=== PATIENT | male | born 1990 | race Caucasian/White ===

== ENCOUNTER 2023-04-23 21:56 | Inpatient (IN) ==
[2023-04-23] MEDS ORDERED: dilTIAZem HCl 5 MG/ML 5 ML VIAL IV ONE (22:19)
[2023-04-23] MEDS ORDERED: dilTIAZem HCl 5 MG/ML 5 ML VIAL IV STA (22:19)
[2023-04-23] MEDS ORDERED: STAT IV Infusion **Titration per Protocol STA (22:20)
[2023-04-23] MEDS ORDERED: SODIUM CHLORIDE 0.9% 1000ML 1,000 ML IV ONE (22:20)
[2023-04-23 22:30] LABS: Basophils # (auto) 0.07 K/uL (0-0.2); Basophils % (auto) 0.9 %; Eosinophils # (auto) 0.12 K/uL (0-0.50); Eosinophils % (auto) 1.5 %; Hematocrit (blood only) 47.1 % (42.0-52.0); Hemoglobin 16.1 g/dl (14.0-18.0); Immature Granulocytes # (auto) 0.01 K/uL (0.01-0.20); Immature Granulocytes % (auto) 0.1 %; Lymphocytes % (auto) 42.2 %; Mean Corpuscular Hemoglobin 30.6 pg (25.0-34.0); Mean Corpuscular Hgb Conc 34.2 g/dL (32.0-36.0); Mean Corpuscular Volume 89.5 fL (80.0-100.0); Mean Platelet Volume 10.9 fL (9.4-12.4); Monocytes # (auto) 0.71 K/uL (0.11-0.59); Monocytes % (auto) 8.8 %; Neutrophils # (auto) 3.75 K/uL (1.40-6.50); Neutrophils % (auto) 46.5 %; Platelet Count 271 K/uL (130-400); RDW Coefficient of Variation 12.1 % (11.5-14.5); RDW Standard Deviation 39.7 fL (36.4-46.3); Red Blood Count 5.26 M/uL (4.70-6.10); White Blood Count 8.06 K/ul (4.8-10.8)
[2023-04-23] MEDS ORDERED: dilTIAZem HCL 125 MG in DEXTROSE 5% 100 ML IV SCH (22:30)
[2023-04-23 22:48] LABS: Albumin Globulin Ratio 1.6 (0.9-2); Albumin Level 4.5 gm/dl (3.4-5.0); BUN Creatinine Ratio 12.7 (10-20); Bilirubin,Total 0.7 mg/dl (0.2-1.0); Calcium 10.2 mg/dl (8.6-10.3); Est GFR (African American) 110.6 ml/min; Est GFR (Non-African American) 95.5 ml/min; Globulin 2.8 gm/dl (2.5-4.0); Magnesium 2.4 mg/dl (1.7-2.4); Potassium 4.3 mmol/L (3.5-5.1); Total Protein 7.3 gm/dl (6.0-8.3)
[2023-04-23 22:54] LABS: Troponin I High Sensitivity 7.2 pg/ml (0-20)
--- NOTE | 2023-04-23 22:55 | Emergency Department Note ---
History of Present Illness General Chief complaint: Arrhythmia/Palpitations Stated complaint: TACHYCARDIA Time Seen by Provider: 04/23/23 22:16 History of Present Illness This 32-year-old male presents to ER complaining of racing heart today. Patient drank heavily last night. He drinks nearly every single day at least 6+ beers. No history of A-fib or SVT. He states he is healthy with no active medical pro blems. Patient denies chest pain, dyspnea, fever, chills, flulike illness. Patient denies having the shakes or seizures from not drinking. He only drinks at night. Home Medications Medication Instructions Recorded Confirmed Type No Known Home Medications 06/21/20 04/23/23 History Allergies Allergy/AdvReac Type Severity Reaction Status Date / Time No Known Allergies Allergy Mild Unverified 03/09/23 10:13 Past Med/Surg History Surgical History History of tonsillectomy S/P tooth extraction Family History Mother Breast cancer Father No problems noted. Sister No problems noted. Son No problems noted. Son No problems noted. 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 marital status: Current Living Situation: Spouse and Family current occupational status: employed current occupation: [employer] How many Children do You have: 2 Feels Safe at Home: Yes Childhood Exposure to Second-Hand Smoke: No Diet: regular caffeine: Yes during the past year weight has: remained stable Dental Care, Regularly: Yes Physical Activity Frequency: Daily Seatbelt Use: never Sunscreen Use: No Assistive Devices: None Review of Systems A total of 10 systems reviewed and were otherwise negative Physical Exam Vital Signs Vital Signs - 24 hr 04/23/23 21:57 04/23/23 22:02 04/23/23 22:17 Temperature 35.8 C L Temperature Source Temporal Artery Scan Pulse Rate 77 141 H Respiratory Rate 18 Respiratory Depth Normal Blood Pressure [Right Arm] 153/88 H Blood Pressure Mean [Right Arm] 109 Pulse Oximetry 97 Oxygen Delivery Method Room Air Sepsis Recent Fever Within 48 Hours No Sepsis New/Unexplained Change in Mental Status N/A Sepsis Action Taken by Nursing No Action Required 04/23/23 22:29 Temperature Temperature Source Pulse Rate 96 H Respiratory Rate Respiratory Depth Blood Pressure [Right Arm] Blood Pressure Mean [Right Arm] Pulse Oximetry Oxygen Delivery Method Sepsis Recent Fever Within 48 Hours Sepsis New/Unexplained Change in Mental Status Sepsis Action Taken by Nursing VITALS: Vitals are noted on the nurse's note and reviewed by myself. Vital signs reviewed. GENERAL: Pleasant male, in no acute distress, nondiaphoretic, well-developed well-nourished. SKIN: The skin was without rashes, erythema, edema, or bruising. There is no tenting of the skin. Capillary reflex less than 2 seconds. HEAD: Normocephalic atraumatic. EARS: External auditory canals clear, EYES: Pupils equal round and reactive to light and accommodation. Conjunctivae without injection, sclerae without icterus. Extraocular movements intact. NOSE: Patent, turbinates without inflammation or discharge. MOUTH: Mucous membranes moist. Pharynx without erythema or exudate. Uvula midline. Airway patent. Tongue does not deviate. NECK: Supple without nuchal rigidity. No lymphadenopathy. No thyromegaly. Cervical spine is nontender. No JVD. HEART: Tachycardic irregularly irregular concerning for A-fib with RVR LUNGS: Clear to auscultation bilaterally without wheezes, rales or rhonchi. No retractions or accessory muscle use. ABDOMEN: Positive bowel sounds x 4. Normal tympanic percussion. Soft, nontender, without masses or organomegaly. Beckham sign negative. No guarding or rebound tenderness. No CVA tenderness MUSCULOSKELETAL: No muscle atrophy, erythema, or edema noted. NEURO: Patient was alert and oriented to person place and time. Normal sensati on to light and sharp touch. No focal neurological deficits. Course Administered Medications Sodium Chloride (Nss 1000ml) 1,000 mls @ 999 mls/hr IV .Q1H1M ONE Stop: 04/23/23 23:20 Last Admin: 04/23/23 22:35 Dose: 999 mls/hr Documented By: CAMRYN Diltiazem HCl 125 mg/ Dextrose 125 mls @ 5 mls/hr IV .Q24H [facility]; Protocol Stop: 05/23/23 22:29 Last Admin: 04/23/23 22:34 Dose: 5 mg/hr, 5 mls/hr Documented By: CAMRYN Co-signed By: YEIMY Discontinued Medications Diltiazem HCl (Diltiazem Hcl 5 Mg/Ml 5 Ml Vial) Confirm Administered Dose 25 mg IV .STK-MED ONE Stop: 04/23/23 22:20 Last Admin: 04/23/23 22:35 Dose: Not Given Documented By: CAMRYN Diltiazem HCl (Diltiazem Hcl 5 Mg/Ml 5 Ml Vial) 20 mg IV NOW STA Stop: 04/23/23 22:20 Last Admin: 04/23/23 22:35 Dose: 20 mg Documented By: CAMRYN Co-signed By: YEIMY Critical Care Time Critical Care Time: Yes Total Critical Care Time: 35 I have personally spent 35 minutes of critical care time in the direct management of this patient. This includes bedside care, interpretation of diagnostic studies, and testing, discussion with consultants, patient, and family members, and other required patient management activities. This 35 minutes is in excess of all separately billable procedures. Medical Decision Making Medical Records Attestation: I reviewed the patient's medical records. Home Medications Current Medication List: was personally reviewed by az Laboratory Data Attestation: I reviewed the patient's lab results. 04/23/23 22:15 04/23/23 22:15 Lab Results 04/23/23 04/23/23 04/23/23 Range/Units 22:15 22:15 22:15 WBC 8.06 (4.8-10.8) K/ul RBC 5.26 (4.70-6.10) M/uL Hgb 16.1 (14.0-18.0) g/dl Hct 47.1 (42.0-52.0) % MCV 89.5 (80.0-100.0) fL MCH 30.6 (25.0-34.0) pg MCHC 34.2 (32.0-36.0) g/dL RDW Std Deviation 39.7 (36.4-46.3) fL RDW Coeff of Tonya 12.1 (11.5-14.5) % Plt Count 271 (130-400) K/uL MPV 10.9 (9.4-12.4) fL Immature Gran % (Auto) 0.1 % Neut % (Auto) 46.5 % Lymph % (Auto) 42.2 % Evans % (Auto) 8.8 % Eos % (Auto) 1.5 % Baso % (Auto) 0.9 % Neut # (Auto) 3.75 (1.40-6.50) K/uL Lymph # (Auto) 3.40 (1.2-3.4) K/uL Evans # (Auto) 0.71 H (0.11-0.59) K/uL Eos # (Auto) 0.12 (0-0.50) K/uL Baso # (Auto) 0.07 (0-0.2) K/uL Immature Gran # (Auto) 0.01 (0.01-0.20) K/uL PT 10.8 (9.0-12.0) Seconds INR 1.0 (0.9-1.1) APTT 28.9 (21.0-31.0) Seconds PTT Ratio 1.0 Sodium 142 (136-145) mmol/L Potassium 4.3 (3.5-5.1) mmol/L Chloride 107 (98-107) mmol/L Carbon Dioxide 29 (21-32) mmol/L Anion Gap 6 (3-11) BUN 13 (6-23) mg/dl Creatinine 1.02 (0.6-1.4) mg/dl Est Cr Clr Drug Dosing 102.0 ml/min Est GFR ( Amer) 110.6 ml/min Est GFR (Non-Af Amer) 95.5 ml/min BUN/Creatinine Ratio 12.7 (10-20) Glucose 93 (70-99(Fasting)) mg/dl Calcium 10.2 (8.6-10.3) mg/dl Magnesium 2.4 (1.7-2.4) mg/dl Total Bilirubin 0.7 (0.2-1.0) mg/dl AST 25 (13-39) U/L ALT 30 (7-52) U/L Alkaline Phosphatase 61 (34-104) U/L Troponin I High Sens 7.2 (0-20) pg/ml Total Protein 7.3 (6.0-8.3) gm/dl Albumin 4.5 (3.4-5.0) gm/dl Globulin 2.8 (2.5-4.0) gm/dl Albumin/Globulin Ratio 1.6 (0.9-2) TSH (0.300-4.500) uIu/ml 04/23/23 Range/Units 22:15 WBC (4.8-10.8) K/ul RBC (4.70-6.10) M/uL Hgb (14.0-18.0) g/dl Hct (42.0-52.0) % MCV (80.0-100.0) fL MCH (25.0-34.0) pg MCHC (32.0-36.0) g/dL RDW Std Deviation (36.4-46.3) fL RDW Coeff of Tonya (11.5-14.5) % Plt Count (130-400) K/uL MPV (9.4-12.4) fL Immature Gran % (Auto) % Neut % (Auto) % Lymph % (Auto) % Evans % (Auto) % Eos % (Auto) % Baso % (Auto) % Neut # (Auto) (1.40-6.50) K/uL Lymph # (Auto) (1.2-3.4) K/uL Evans # (Auto) (0.11-0.59) K/uL Eos # (Auto) (0-0.50) K/uL Baso # (Auto) (0-0.2) K/uL Immature Gran # (Auto) (0.01-0.20) K/uL PT (9.0-12.0) Seconds INR (0.9-1.1) APTT (21.0-31.0) Seconds PTT Ratio Sodium (136-145) mmol/L Potassium (3.5-5.1) mmol/L Chloride (98-107) mmol/L Carbon Dioxide (21-32) mmol/L Anion Gap (3-11) BUN (6-23) mg/dl Creatinine (0.6-1.4) mg/dl Est Cr Clr Drug Dosing ml/min Est GFR ( Amer) ml/min Est GFR (Non-Af Amer) ml/min BUN/Creatinine Ratio (10-20) Glucose (70-99(Fasting)) mg/dl Calcium (8.6-10.3) mg/dl Magnesium (1.7-2.4) mg/dl Total Bilirubin (0.2-1.0) mg/dl AST (13-39) U/L ALT (7-52) U/L Alkaline Phosphatase (34-104) U/L Troponin I High Sens (0-20) pg/ml Total Protein (6.0-8.3) gm/dl Albumin (3.4-5.0) gm/dl Globulin (2.5-4.0) gm/dl Albumin/Globulin Ratio (0.9-2) TSH 4.520 H (0.300-4.500) uIu/ml Imaging Data Attestation: I personally reviewed and interpreted this imaging study as follows: MDM Narrative Prior records/ancillary studies reviewed. Triage Nursing notes reviewed. Additional history obtained from family. The patient's history was concerning for palpitations. Differential diagnosis: Etiologies such as premature contractions, electrolyte abnormality, cardiac dysrhythmia, thyroid dysfunction, pulmonary embolism, infection, gastrointestinal, as well as others were entertained. Physical examination: Benign as above. ER treatment provided: Cardizem IV with drip On reassessment the patient felt better. Diagnostic interpretation by me: An order was placed for continuous cardiac monitoring. The monitor shows a rate of 60-200 with a A-fib RVR rhythm per my interpretation. The electrocardiogram was ordered for palpitaions ECG: Ordered for palpitations EKG: Irregularly irregular, occasional PVC, ventricular rate of 151. Impression A-fib RVR with occasional PVC independently interpreted by myself The labs Independently Interpreted by myself revealed no worrisome leukocytosis, normal magnesium Negative troponin Imaging studies: Chest x-ray with no acute consolidation, pneumothorax or free air per my independent interpretation CHADS2 Score Sex: 0 Congestive HF (1): 0 Hypertension (1) :0 Age >75 years (1) :0 Diabetes mellitus (1):0 Stroke/TIA/TE (2): 0 Score: 0 CHADS2 Unadjusted ischemic stroke rate (% per year) 0: 0.6% 1: 3.0% 2: 4.2% 3: 7.1% 4: 11.1% 5: 12.5% 6: 13.0% Consultation: A consultation was placed with the hospitalist. The case was discussed and diagnostics were reviewed. The patient was evaluated in the ER for further treatment. This appears to be consistent with insulin A-fib with RVR. Patient was given Cardizem with a drip. His heart rate did improve. He was still in A-fib. Symptoms started today most likely but patient's had symptoms in the past possi dontrell but is not 100% sure. Electrolytes are stable. He does drink excessive amounts of alcohol and this can contribute to his symptoms. Medicine is consulted and the case was discussed and he will be evaluated for admission. By the evaluation outlined above emergent etiologies such as electrolyte abnormality, thyroid dysfunction, pulmonary embolism, infection, as well as others were deemed relatively unlikely. The pt informed about the findings as listed above. All questions were answered and pleased with the treatment. The chart was completed utilizing [employer] Speech voice recognition software. Grammatical errors, random word insertions, pronoun errors, and incomplete sentences are an occassional consequence of this system due to software limitations, ambient noise, and hardware issues. Any formal questions or concerns about the content, text, or information contained within the body of this dictation should be directly addressed to the physician home care assistant for clarification. Impression & Plan Atrial fibrillation with rapid ventricular response Discharge Plan Visit Data Chief Complaint: Arrhythmia/Palpitations Stated Complaint: TACHYCARDIA ED Provider: Lion Michel ED Midlevel Provider: Rowena Walsh Discharge Problem: Atrial fibrillation with rapid ventricular response Patient Disposition: Admitted As Inpatient Condition: Fair Forms Stand Alone Forms: VNG Prescriptions Prescriptions: No Action No Known Home Medications Referrals Referrals: Lisbet Eric MD [Primary Care Provider] -
[2023-04-23 23:02] LABS: Thyroid Stimulating Hormone 4.52 uIu/ml (0.300-4.500)
[2023-04-23 23:08] LABS: Partial Thromboplastin Time 28.9 Seconds (21.0-31.0); Prothrombin Time 10.8 Seconds (9.0-12.0)
[2023-04-23 23:36] LABS: T4 Free Thyroxine 0.66 ng/dl (0.61-1.60)
[2023-04-24] MEDS ORDERED: POLYETHYLENE (MIRALAX) 17 GM PACK PO PRN (00:52)
[2023-04-24] MEDS ORDERED: ACETAMINOPHEN 325 MG TAB PO PRN (00:52)
[2023-04-24] MEDS ORDERED: ALUMINUM/MAGNESIUM SUSP 30 ML UDC PO PRN (00:52)
[2023-04-24] MEDS: ASPIRIN 81 MG ECTAB PO SCH ×2 (01:48→09:59)
--- NOTE | 2023-04-24 04:57 | History & Physical Report ---
Date of Service April 24, 2023 Assessment & Plan (1) Atrial fibrillation with rapid ventricular response: Plan: Patient found to be in atrial fibrillation with rapid ventricular rate in the ED and presents with palpitations. Started on IV Cardizem for rate control which will be titrated based on his hemodynamic response. check TSH leve to exclude thyroid related causes . Atrial fibrillation likely triggered by alcohol consumption . Check transthoracic echo obtain serial troponin levels to rule out ischemia and patient does not have any chest pain . Continue telemetry monitoring Cardiology input (2) ETOH abuse: Plan: Patient admits to significant alcohol consumption consumes predominantly beer. No evidence of significant electrolyte abnormalities noted on initial labs initiate CIWA protocol and close monitoring Thiamine and folate supplementation Admission and Anticipated Discharge Date Admission Date: April 23, 2023 History of Present Illness Chief Complaint: Patient presents to ED with complaints of palpitations Primary Care Provider: Lisbet Eric MD This is a 32-year-old male with no significant past medical history except for history of alcohol consumption who presents to the emergency department with complaints of palpitations. Patient reports that he started experiencing intermittent episodes of racing heart and became concerned and presents to ED for further evaluation. Patient admits to having similar symptoms about 2 years ago that resolved without any significant intervention and patient did not seek medical attention for evaluation of palpitations at the time. Patient also admits to consuming alcohol on almost daily basis and patient drinks beer in particular. Patient reports that on Sunday he had consumed significant amounts of alcohol more than his usual daily consumption. Upon arrival to the ED patient was found to be in atrial fibrillation with rapid ventricular rate and was started on IV Cardizem for rate control. Patient otherwise denies any chest pain or shortness of breath. Patient denies any seizures or withdrawal type symptoms from his alcohol consumption. Allergies Allergy/AdvReac Type Severity Reaction Status Date / Time No Known Allergies Allergy Mild Unverified 03/09/23 10:13 Home Medications Medication Instructions Recorded Confirmed Type No Known Home Medications 06/21/20 04/23/23 History Past Med/Surg History Surgical History History of tonsillectomy S/P tooth extraction Family History Mother Breast cancer Father No problems noted. Sister No problems noted. Son No problems noted. Son No problems noted. 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 Beliefs That Will Affect Care: None marital status: Current Living Situation: Spouse current occupational status: employed current occupation: [employer] How many Children do You have: 2 Other Information That Helps Us Care for You: No Feels Safe at Home: Yes Safety Concerns: Feels Safe At This Time Childhood Exposure to Second-Hand Smoke: No Diet: regular caffeine: Yes during the past year weight has: remained stable Dental Care, Regularly: Yes Physical Activity Frequency: Daily Seatbelt Use: never Sunscreen Use: No Assistive Devices: None Review of Systems Review of Systems: Constitutional-no fever or chills ENT-no blurred vision, no double vision, no epistaxis, no sore throat Respiratory- no shortness of breath noted with exertion. No wheezing Cardiac-no palpitations, no chest pain, no syncope GI-no nausea, vomiting, diarrhea, melena, hematochezia -no urinary retention, no urinary incontinence, no dysuria, no hematuria Musculoskeletal-no joint pain, no muscle tenderness Skin-no bruising, no rashes, no pruritus Neuro-no isolated weakness, Physical Exam Physical Exam: Head and ENT no thyroid enlargement trachea midline Cardiovascular S1-S2 are normal no S3 Lungs bilateral air entry fair no wheezing Abdomen soft nondistended positive bowel sounds no rebound tenderness Extremity shows trace edema Neurologically no focal deficits no tremors Skin shows no rash no cyanosis Results & Data Results & Data Vital Signs (Past 12 Hours) Vital Signs Temp Pulse Pulse Resp BP Pulse Ox O2 Del Method 04/24/23 03:06 36.8 C 78 16 129/79 98 Room Air 04/24/23 01:07 72 04/24/23 00:45 118 H 04/24/23 00:50 36.8 C 111 H 18 137/98 95 Room Air 04/23/23 23:30 85 17 130/93 98 Room Air 04/23/23 22:29 96 H 04/23/23 22:17 141 H 04/23/23 22:02 153/88 H 04/23/23 21:57 35.8 C L 77 18 97 Room Air Laboratory Results Short CBC 04/23/23 Range/Units 22:15 WBC 8.06 (4.8-10.8) K/ul Hgb 16.1 (14.0-18.0) g/dl Hct 47.1 (42.0-52.0) % Plt Count 271 (130-400) K/uL BMP 04/23/23 22:15 Sodium 142 Potassium 4.3 Chloride 107 Carbon Dioxide 29 BUN 13 Creatinine 1.02 Glucose 93 Calcium 10.2 Liver Function 04/23/23 Range/Units 22:15 Total Bilirubin 0.7 (0.2-1.0) mg/dl AST 25 (13-39) U/L ALT 30 (7-52) U/L Alkaline Phosphatase 61 (34-104) U/L Albumin 4.5 (3.4-5.0) gm/dl Diagnostic Findings Chest X-Ray 04/23/23 22:00 XR chest 1V not portable CLINICAL HISTORY: Chest pain, nonspecific COMPARISON STUDY: No previous studies for comparison. FINDINGS: Lung volumes are normal. Lungs are clear. There is no pneumothorax or pleural effusion. Cardiac size is normal. Mediastinal contours are normal. There is no evidence for pulmonary edema. IMPRESSION: No acute cardiopulmonary findings. ACT 112: Negative or not required by law. Electronically signed by: Hector Collins M.D. 04/24/2023 6:55 AM Code Status & VTE Plan VTE Prophylaxis Plan VTE Prophylaxis will be ordered: Yes PG Care Time/CCT Total # of Minutes Spent Total Time Spent with Patient: Total time spent is greater than 50% in coordination of care (as documented) at patient's floor/unit and/or counseling patient: Coding Level of Care Code 37209 INT INP/OBS CARE 2/55MIN Diagnoses Atrial fibrillation with rapid ventricular response I48.91 ETOH abuse F10.10
--- NOTE | 2023-04-24 06:57 | XRay Report ---
XR chest 1V not portable CLINICAL HISTORY: Chest pain, nonspecific COMPARISON STUDY: No previous studies for comparison. FINDINGS: Lung volumes are normal. Lungs are clear. There is no pneumothorax or pleural effusion. Car diac size is normal. Mediastinal contours are normal. There is no evidence for pulmonary edema. IMPRESSION: No acute cardiopulmonary findings. ACT 112: Negative or not required by law. Electronically signed by: Hector Collins M.D. 04/24/2023 6:55 AM
[2023-04-24] MEDS ORDERED: CEROVITE ADV FORMULA TAB PO STA (07:15)
[2023-04-24] MEDS ORDERED: LORazepam 2 MG/1 ML VIAL IV PRN (07:15)
[2023-04-24] MEDS ORDERED: THIAMINE HCL 100 MG, FOLIC ACID 1 MG in SODIUM CHLORIDE 0.9% 1000ML 1,000 ML IV SCH (07:30)
--- NOTE | 2023-04-24 07:33 | Hospitalist Progress Note ---
Date of Service April 24, 2023 Assessment & Plan (1) ETOH abuse: (2) Atrial fibrillation with rapid ventricular response: Plan Johnathan Cantu is a 32 year-old male without significant past medical history who presented to the ED due to palpitations. He was admitted to the hospital a fter being found to be in atrial fibrillation with RVR. He also has A. Fib with RVR Patient found to be in atrial fibrillation with rapid ventricular rate in the ED and presents with palpitations. Started on IV Cardizem for rate control which will be titrated based on his hemodynamic response. check TSH leve to exclude thyroid related causes . Atrial fibrillation likely triggered by alcohol consumption . Check transthoracic echo obtain serial troponin levels to rule out ischemia and patient does not have any chest pain . Continue telemetry monitoring Cardiology input Alcohol Use Disorder Diet: VTE Prophylaxis: Code Status: Full Code Admission and Anticipated Discharge Date Admission Date: April 23, 2023 Subjective Johnathan Cantu is a 32 year-old male without significant past medical history who presented to the ED due to palpitations. He was admitted to the hospital after being found to be in atrial fibrillation with RVR. He also has 04/24: Review of Systems Review of Systems: As per above Results & Data Results & Data Vital Signs (Past 12 Hours) Vital Signs Temp Pulse Pulse Resp BP BP Pulse Ox 04/24/23 06:55 36.8 C 70 20 127/86 98 04/24/23 04:55 56 L 04/24/23 03:06 36.8 C 78 16 129/79 98 04/24/23 01:07 72 04/24/23 00:45 118 H 04/24/23 00:50 36.8 C 111 H 18 137/98 95 04/23/23 23:30 85 17 130/93 98 04/23/23 22:29 96 H 04/23/23 22:17 141 H 04/23/23 22:02 153/88 H 04/23/23 21:57 35.8 C L 77 18 97 O2 Del Method 04/24/23 06:55 Room Air 04/24/23 04:55 04/24/23 03:06 Room Air 04/24/23 01:07 04/24/23 00:45 04/24/23 00:50 Room Air 04/23/23 23:30 Room Air 04/23/23 22:29 04/23/23 22:17 04/23/23 22:02 04/23/23 21:57 Room Air Resident Activity Tracking Resident Involvement: Resident Care Provided Care Provided: Adult Hospital Medicine
[2023-04-24 08:11] LABS: BUN Creatinine Ratio 12.6 (10-20); Calcium 9.3 mg/dl (8.6-10.3); Creatinine Clr Calc Pharmacy 124.3 ml/min; Est GFR (African American) 120.6 ml/min; Potassium 4.7 mmol/L (3.5-5.1)
[2023-04-24] MEDS ORDERED: FOLIC ACID 1 MG TAB PO SCH (09:00)
[2023-04-24] MEDS ORDERED: HEPARIN SOD 5,000 UNIT/0.5 ML VIAL SQ SCH (09:00)
[2023-04-24] MEDS ORDERED: THIAMINE HCL 100 MG TAB PO SCH (09:00)
--- NOTE | 2023-04-24 09:12 | Electrocardiogram Report ---
Test Reason : Blood Pressure : / mmHG Vent. Rate : 151 BPM Atrial Rate : 000 BPM P-R Int : 000 ms QRS Dur : 074 ms QT Int : 242 ms P-R-T Axes : 000 089 032 degrees QTc Int : 383 ms Atrial fibrillation with rapid ventricular response with premature ventricular or aberrantly conducte d complexes Abnormal ECG No previous ECGs available Confirmed by Terry Arshad ([id number]) on 04/24/2023 9:11:49 AM Referred By: REFERRED SELF Confirmed By:Terry Arshad
--- NOTE | 2023-04-24 11:12 | Cardiology Consultation ---
Date of Consultation April 24, 2023 Assessment & Plan (1) Atrial fibrillation with rapid ventricular response: (2) ETOH abuse: Plan 32-year-old healthy man with history of moderate alcohol intake developed atrial fibrillation after a larger than usual alcohol ingestion. The fact that he had normal electrolytes (including magnesium) and has a normal echocardiogram weighs against the atrial fibrillation being secondary to chronic alcohol use, more likely this is a "holiday heart" type scenario which should have a low incidence of recurrence. Nonetheless, would recommend that he be discharged with a "pill in the pocket" PRN metoprolol prescription to be used if he were to develop recurrent atrial fibrillation. 50 mg of metoprolol tartrate would be one option, the tartrate would allow for quicker absorption and the dose should be adequate to control the ventricular rate of atrial fibrillation or help convert him back to sinus rhythm. His [id number] were 0, so anticoagulation is not an issue. Did advise patient as to the deleterious cardiac effects of both chronic and acute alcohol ingestion. No specific cardiology follow-up needed in the absence of recurrent atrial fibrillation. History of Present Illness Reason for Consultation: afib/rvr Requesting Physician: Rocky Reeves MD Attending Physician: Shyanne Lindsay MD History of Present Illness 32-year-old man with no significant medical cardiac history presented to the emergency department with palpitations and found to have atrial fibrillation with rapid ventricular response after heavy alcohol consumption. At baseline, he is physically active with no cardiopulmonary complaints whatsoever. 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 He drinks about a sixpack of beer a day, but while with some friends over the weekend he consumed significantly more alcohol and then noted feeling "nervous" with a vague sense of palpitations but no dyspnea, chest pain, lightheadedness, presyncope, or syncope. ECG in the ER showed atrial fibrillation with rapid ventricular response 151 bpm, otherwise unremarkable. Troponin was negative. He was placed on a diltiazem drip for rate control, approximately 4 AM this morning he reverted to sinus rhythm. He has no family history of cardiac issues. He denies any personal history of hypertension, diabetes, notes that his cholesterol is "low", and he is a non-smo ker. At the time of my evaluation, he was comfortable and had no somatic complaints whatsoever. Allergies Allergy/AdvReac Type Severity Reaction Status Date / Time No Known Allergies Allergy Mild Unverified 03/09/23 10:13 Home Medications Medication Instructions Recorded Confirmed Type No Known Home Medications 06/21/20 04/23/23 History Patient History Surgical History History of tonsillectomy S/P tooth extraction Family History Mother Breast cancer Father No problems noted. Sister No problems noted. Son No problems noted. Son No problems noted. Denies family history of Ovarian cancer Prostate cancer Myocardial infarction Colorectal cancer Social History Smoking Status: Never smoker Second Hand Exposure: No; Do You Dip or Chew Tobacco: Yes; Hx Alcohol Use: Yes Alcohol type: beer Alcohol Intake Frequency: 2-3 x/Week Hx Substance Use: No Preferred Language: Danish Communication Ability: Effective Visual Impairment: No Limitations Hearing Ability: Normal Sausage Smoker Required: No Beliefs That Will Affect Care: None marital status: Current Living Situation: Spouse current occupational status: employed current occupation: [employer] How many Children do You have: 2 Other Information That Helps Us Care for You: No Feels Safe at Home: Yes Safety Concerns: Feels Safe At This Time Childhood Exposure to Second-Hand Smoke: No Diet: regular caffeine: Yes during the past year weight has: remained stable Dental Care, Regularly: Yes Physical Activity Frequency: Daily Seatbelt Use: never Sunscreen Use: No Assistive Devices: None Physical Exam Physical Exam: Fit appearing adult white male in no distress. BP normotensive. Pulse 55 bpm and regular without ectopy. Skin: no ecchymoses or generalized lesions. HEENT: unremarkable. Neck: JVP at the clavicle at 90 degrees, no carotid bruits. Lungs: clear. Cardiac: regular rhythm, normal S1-2, no murmur. Abdomen: benign. Extremities: no edema, pulses intact. Neurologic: normal affect and conversation, nonfocal. Results & Data Diagnostic Findings Preliminary reading of echocardiogram shows a completely normal study. PG Care Time/CCT Total # of Minutes Spent Total Time Spent with Patient: Total time spent is greater than 50% in coordination of care (as documented) at patient's floor/unit and/or counseling patient: Coding Level of Care Code 08318 IN/OBS CONSULT LVL 3,45M Diagnoses Atrial fibrillation with rapid ventricular response I48.91 ETOH abuse F10.10
--- NOTE | 2023-04-24 11:29 | XCELERA ---
[id number]
--- NOTE | 2023-04-24 12:04 | Medical Student Progress Note ---
Date of Service April 24, 2023 Assessment & Plan (1) Atrial fibrillation with rapid ventricular response: (2) ETOH abuse: Plan Johnathan Cantu is a 32 year-old male without significant past medical history who presented to the ED due to palpitations. He was admitted to the hospital a fter being found to be in atrial fibrillation with RVR. 1. AFib with RVR Patient found to be in atrial fibrillation with rapid ventricular rate in the ED and presents with palpitations. Received on IV Cardizem for rate control last night (04/23) He converted from Afib to NSR at 4:44 AM. Checked thyroid labs for thyroid-related issue. TSH was mildly elevated at 4.520. Free T4 was WNL at 0.66. Atrial fibrillation likely triggered by alcohol consumption. Transthoracic Echo was normal. Troponin was WNL at 7.2. Patient does not have any chest pain. Cardiology input: [id number] was 0. Suspected his presentation is d/t "holiday heart." Recommended that he be discharged with a "pill in the pocket" PRN metoprolol prescription to be used if he were to develop recurrent atrial fibrillation. Advised 50 mg of metoprolol tartrate, with which we will discharge pt home. No specific cardiology follow-up needed in the absence of recurrent atrial fibrillation. 2. Alcohol Use Disorder Cardiology advised patient as to the deleterious cardiac effects of both chronic and acute alcohol ingestion. Diet: Heart healthy VTE Prophylaxis: received heparin Code Status: Full Code Admission and Anticipated Discharge Date Admission Date: April 23, 2023 Anticipated date of discharge: 04/24/23 Barrett Cantu is a 32 year-old male without significant past medical history who presented to the ED due to palpitations. He was admitted to the hospital after being found to be in atrial fibrillation with RVR and was started on IV Cardizem for rate control. 04/24: Reports he felt his palpitations stop around 4 AM today. Denies ever having chest pain, SOB, fatigue, lightheadedness, or dizziness during or after his episode of afib. Does report anxiousness and sweats when he was experiencing afib, but has not experienced these symptoms since his palpitations halted. Denies symptoms of alcohol withdrawal including seizures, visual/auditory/tactile hallucinations, tremor, decreased appetite, insomnia, nausea, vomiting, headache, vivid dreams. Reports he has had intermittent episodes of palpitations previously, which he recalls first occurring about 2 years ago, but these palpitations lasted only 15 seconds before resolution, so he has not sought medical attention. Review of Systems Review of Systems: As per above Physical Exam Physical Exam: Vitals: BP normotensive. Pulse 55 bpm regular without ectopy. Constitutional: Fit appearing adult white male in no distress. Skin: no ecchymoses or generalized lesions. HEENT: No conjunctival discharge. Trachea midline. Normal palatal elevation. No oropharyngeal edema or erythema. Lungs: CTAB. No rhonchi, crackles, wheezes. Cardiac: regular rate and rhythm, normal S1-2, no murmur. Abdomen: Soft, nontender, nondistended. Bowel sounds present. Extremities: No bilateral lower extremity edema. Neurologic: alert & oriented x 3. Psych: normal mood and affect. Results & Data Vital Signs (Past 12 Hours) Vital Signs Temp Pulse Pulse Resp BP BP Pulse Ox 04/24/23 11:12 36.9 C 55 L 20 126/73 97 04/24/23 10:00 04/24/23 09:36 04/24/23 07:30 58 L 04/24/23 06:55 36.8 C 70 20 127/86 98 04/24/23 04:55 56 L 04/24/23 03:06 36.8 C 78 16 129/79 98 04/24/23 01:07 72 04/24/23 00:45 118 H 04/24/23 00:50 36.8 C 111 H 18 137/98 95 Pulse Ox O2 Del Method O2 Del Method 04/24/23 11:12 Room Air 04/24/23 10:00 97 Room Air 04/24/23 09:36 97 Room Air 04/24/23 07:30 04/24/23 06:55 Room Air 04/24/23 04:55 04/24/23 03:06 Room Air 04/24/23 01:07 04/24/23 00:45 04/24/23 00:50 Room Air Laboratory Results Laboratory Results - last 24 hr 04/23/23 04/23/23 04/23/23 22:15 22:15 22:15 WBC 8.06 RBC 5.26 Hgb 16.1 Hct 47.1 MCV 89.5 MCH 30.6 MCHC 34.2 RDW Std Deviation 39.7 RDW Coeff of Tonya 12.1 Plt Count 271 MPV 10.9 Immature Gran % (Auto) 0.1 Neut % (Auto) 46.5 Lymph % (Auto) 42.2 Ocean % (Auto) 8.8 Eos % (Auto) 1.5 Baso % (Auto) 0.9 Neut # (Auto) 3.75 Lymph # (Auto) 3.40 Ocean # (Auto) 0.71 H Eos # (Auto) 0.12 Baso # (Auto) 0.07 Immature Gran # (Auto) 0.01 PT 10.8 INR 1.0 APTT 28.9 PTT Ratio 1.0 Sodium 142 Potassium 4.3 Chloride 107 Carbon Dioxide 29 Anion Gap 6 BUN 13 Creatinine 1.02 Est Cr Clr Drug Dosing 102.0 Est GFR ( Amer) 110.6 Est GFR (Non-Af Amer) 95.5 BUN/Creatinine Ratio 12.7 Glucose 93 Calcium 10.2 Magnesium 2.4 Total Bilirubin 0.7 AST 25 ALT 30 Alkaline Phosphatase 61 Troponin I High Sens 7.2 Total Protein 7.3 Albumin 4.5 Globulin 2.8 Albumin/Globulin Ratio 1.6 Vitamin B12 Folate TSH Free T4 Ethyl Alcohol mg/dL SARS-CoV-2, RNA, NAAT 04/23/23 04/23/23 04/23/23 22:15 22:21 23:13 WBC RBC Hgb Hct MCV MCH MCHC RDW Std Deviation RDW Coeff of Tonya Plt Count MPV Immature Gran % (Auto) Neut % (Auto) Lymph % (Auto) Ocean % (Auto) Eos % (Auto) Baso % (Auto) Neut # (Auto) Lymph # (Auto) Ocean # (Auto) Eos # (Auto) Baso # (Auto) Immature Gran # (Auto) PT INR APTT PTT Ratio Sodium Potassium Chloride Carbon Dioxide Anion Gap BUN Creatinine Est Cr Clr Drug Dosing Est GFR ( Amer) Est GFR (Non-Af Amer) BUN/Creatinine Ratio Glucose Calcium Magnesium Total Bilirubin AST ALT Alkaline Phosphatase Troponin I High Sens Total Protein Albumin Globulin Albumin/Globulin Ratio Vitamin B12 Folate TSH 4.520 H Free T4 0.66 Ethyl Alcohol mg/dL < 10.0 SARS-CoV-2, RNA, NAAT NEGATIVE 04/24/23 04/24/23 07:22 07:22 WBC RBC Hgb Hct MCV MCH MCHC RDW Std Deviation RDW Coeff of Tonya Plt Count MPV Immature Gran % (Auto) Neut % (Auto) Lymph % (Auto) Ocean % (Auto) Eos % (Auto) Baso % (Auto) Neut # (Auto) Lymph # (Auto) Ocean # (Auto) Eos # (Auto) Baso # (Auto) Immature Gran # (Auto) PT INR APTT PTT Ratio Sodium 140 Potassium 4.7 Chloride 107 Carbon Dioxide 29 Anion Gap 4 BUN 12 Creatinine 0.95 Est Cr Clr Drug Dosing 124.3 Est GFR ( Amer) 120.6 Est GFR (Non-Af Amer) 104.0 BUN/Creatinine Ratio 12.6 Glucose 95 Calcium 9.3 Magnesium Total Bilirubin AST ALT Alkaline Phosphatase Troponin I High Sens Total Protein Albumin Globulin Albumin/Globulin Ratio Vitamin B12 159 L Folate 15.36 TSH Free T4 Ethyl Alcohol mg/dL SARS-CoV-2, RNA, NAAT Chest X-Ray 04/23/23 22:00 XR chest 1V not portable CLINICAL HISTORY: Chest pain, nonspecific COMPARISON STUDY: No previous studies for comparison. FINDINGS: Lung volumes are normal. Lungs are clear. There is no pneumothorax or pleural effusion. Cardiac size is normal. Mediastinal contours are normal. There is no evidence for pulmonary edema. IMPRESSION: No acute cardiopulmonary findings. ACT 112: Negative or not required by law. Electronically signed by: Hector Collins M.D. 04/24/2023 6:55 AM
[2023-04-24] MEDS ORDERED: CYANOCOBALAMIN 1000 MCG/ML VIAL IM ONE (13:27)
--- NOTE | 2023-04-24 15:03 | Discharge Summary ---
Date of Service April 24, 2023 Admission HPI Per Admitting Provider This is a 32-year-old male with no significant past medical history except for history of alcohol consumption who presents to the emergency department with complaints of palpitations. Patient reports that he started experiencing intermittent episodes of racing heart and became concerned and presents to ED for further evaluation. Patient admits to having similar symptoms about 2 years ago that resolved without any significant intervention and patient did not seek medical attention for evaluation of palpitations at the time. Patient also admits to consuming alcohol on almost daily basis and patient drinks beer in particular. Patient reports that on Sunday he had consumed significant amounts of alcohol more than his usual daily consumption. Upon arrival to the ED patient was found to be in atrial fibrillation with rapid ventricular rate and was started on IV Cardizem for rate control. Patient otherwise denies any chest pain or shortness of breath. Patient denies any seizures or withdrawal type symptoms from his alcohol consumption. Admission Exam (Per Admitting) ENMT no thyroid enlargement trachea midline Respiratory bilateral air entry fair no wheezing Cardiovascular S1-S2 are normal no S3 Gastrointestinal (Abdomen) soft nondistended positive bowel sounds no rebound tenderness Musculoskeletal Extremity shows trace edema Skin Skin shows no rash no cyanosis Neurologic Neurologically no focal deficits no tremors Discharge Data Consultations 04/23/23 23:05 ED Decision to Admit Stat 04/24/23 00:52 Consult Cardiology Routine Hospital Course (1) Atrial fibrillation with rapid ventricular response: (2) ETOH abuse: (3) B12 deficiency: Gurpreet Cantu is a 32 year-old male without significant past medical history who presented to the ED due to palpitations. He was admitted to the hospital after being found to be in atrial fibrillation with RVR. 1. AFib with RVR Patient found to be in atrial fibrillation with rapid ventricular rate in the ED and presents with palpitations. Received on IV Cardizem for rate control last night (04/23) He converted from Afib to NSR at 4:44 AM. Checked thyroid labs for thyroid-related issue. TSH was mildly elevated at 4.520. Free T4 was WNL at 0.66. Atrial fibrillation likely triggered by alcohol consumption. Transthoracic Echo was normal. Troponin was WNL at 7.2. Patient does not have any chest pain. Cardiology input: [id number] was 0. Suspected his presentation is d/t "holiday heart." Recommended that he be discharged with a "pill in the pocket" PRN metoprolol prescription to be used if he were to develop recurrent atrial fibrillation. Advised 50 mg of metoprolol tartrate, with which we will disch arge pt home. No specific cardiology follow-up needed in the absence of recurrent atrial fibrillation. 2. EtOH Abuse Patient presented with Afib after consuming 30 beers at a [employer]. Afib suspected to be d/t "holiday heart." Cardiology advised patient as to the deleterious cardiac effects of both chronic and acute alcohol ingestion. Discussed with patient that continuing to drink large amounts of alcohol places him at increased risk for repeat Afib. Hence, advised to avoid consuming large amounts of alcohol and decrease his daily alcohol intake. 3. Vitamin B12 Deficiency B12 was found to be low at 159. Patient was not experiencing vision loss, memory loss, change in cognition, ataxia or any other neurological deficits. He was also not experiencing fatigue, anemia, or GI upset. Patient given shot of B12 prior to discharge. Recommended to take 1000 mcg B12 once discharged and f/u with PCP. Supervising Physician Co-Signing Physician Notes Medical Student Supervision Note: I was personally present during medical student patient encounter and independently interviewed and examined the patient and verified the adair history and physical, reviewed labs and image studies, discussed the case with Annalise Javier and agree with the findings and care plan. Symptomatic A fib with RVR in setting of alcohol binge - started on IV cardizem drip. converted to sinus rhythm. Echo - normal. evaluated by cardio - home on prn b dmitry At risk alcohol use - Discussed limiting alcohol use. B 12 deficiency - must have other etiology as well in conjunction with excessive alcohol use. discussed daily supplementation. outpatient f/u
== END 2023-04-24 16:38 | disposition home or self-care (01) | DRG 310 ==
LOC: ED 21:56 → SUATTDRO 23:16 → 2S 23:16